=== PATIENT | female | born 1935 | race Caucasian/White ===

== ENCOUNTER 2016-12-04 15:09 | Emergency (ER) | payer MEDICARE ==
[~2016-12-04] VITALS: Ht 142.2 cm; Wt 47.7 kg
[~2016-12-04 15:09] MED LIST: CITA20TA17 PO; Calcium; DENO60DI; DOCU-175 PO; ENOX40DI SQ; MULTI-VITAMIN; OXYC-544 PO; VIT C; Vitamin B12
[2016-12-04 15:14] VITALS: Ht 142.2 cm; Wt 47.7 kg
[2016-12-04] MEDS ORDERED: MULT-933 PO (15:36)
--- OUTSIDE RECORDS SUMMARY | 2016-12-04 15:37 | XMS REPORT | Continuity of Care Document ---
Author Author [facility] Organization [facility] Address Unknown Phone Unavailable Support Name Relationship Address Phone LEONARDO ALFONSO Caregiver [address] [facility] [place], [place] [id number] AKIL MARTINEZ MD Caregiver [address] [place] [address] FRANCESCA MILLIGAN MD Caregiver [address] [facility] [address] [address] RHETT FAUSTIN Next Of Kin X [place], [place] [phone] Insurance Providers Payer Name Policy Number Subscriber Name Relationship Medicareadvantra Ppo [id number] Thania Faustin 18 Self Advance Directives Directive Response Recorded Date/Time Advanced Directives Type Living Will DPOA for Healthcare 07/02/14 2:48am Ordered Resuscitation Status Full Code 07/02/14 2:44am Resuscitation Documents on File Yes 07/02/14 3:34am Chief Complaint and Reason for Visit Chief Complaint FX. DISTAL FEMUR, LT. Reason for Visit Fracture of femur, distal, left, closed Osteoporosis Osteoporosis Scoliosis of thoracic spine Overweight (BMI 25.0-29.9) Gait instability Anemia Depression Hypokalemia Problems Medical Problems Problem Onset Date Status Fracture of femur, distal, left, closed Unknown Active Osteoporosis Unknown Active Osteoporosis Unknown Active Scoliosis of thoracic spine Unknown Active Overweight (BMI 25.0-29.9) Unknown Active Gait instability Unknown Active Anemia Unknown Active Depression Unknown Active Hypokalemia Unknown Active Medications Medication Dose Route Sig Days/Qty Instructions Order Date Discontinued Date Status [Anitdepressant] 07/26/10 07/15/11 Discontinued [Multi-Vitamin] 07/15/11 Active [Vit C] 07/15/11 Active [Vitamin B12] 07/11/12 Active [Calcium] 07/11/12 Active Citalopram Hydrobromide 1 Tab PO DAILY 07/02/14 Active Denosumab every 6 months 07/02/14 Active Docusate Sodium 100 Mg PO TWICE A DAY 30 Qty 07/07/14 Active Enoxaparin Sodium 40 Mg SQ Q24H 30 Qty 07/07/14 Active Oxycodone HCl 5-15 Mg PO Every 3 Hours PRN PAIN 60 Qty 07/07/14 Active Social History Social History Problem Response Recorded Date/Time Smoking Status Former smoker 07/02/2014 3:53am When did patient START smoking? 1953 07/02/2014 3:53am When did patient STOP smoking? 30-40 YEARS AGO 07/02/2014 3:53am Has the pt used tobacco in the last 12 months No 07/02/2014 3:53am Query Response Start Date Stop Date Smoking Status Never smoker Hospital Discharge Instructions Instructions: Care Instructions: Reason for Hospitalization: left distal femur fracture I was in the hospital because (patient own words): TRIPPED ON A CORD Discharge Diet: regular Discharge Activity: non weight bearing left lower extremity Follow Up Appointments: [address] Milligan APPT. 07-21-2014 @ 9:00 AM Wound/Incision Care: Do not remove dressing until follow up. Notify Physician If: fever greater than 101, chest pain, shortness of breath, or uncontrolled pain. Condition at time of discharge: Good Good Wound/Incision Care: n/a Durable Medical Equipment: n/a Notify Physician If: Worsening nosebleeds, blood in the stool, abdominal pain General Information: n/a Condition at time of discharge: Fair Plan of Care Discharge Date 07/07/14 5:05pm Disposition 03 TO U NOT [facility] (SNF) Instructions/Education Provided [facility] Ortho Postop DC Instruct Prescriptions See Medications Section Functional Status Query Response Date Recorded Physical Hygiene Assist July 07, 2014 4:21pm Disabilities None July 07, 2014 4:21pm Devices Used Dentures Glasses July 07, 2014 4:21pm Dressing Assist July 07, 2014 4:21pm Ambulation Assist July 07, 2014 4:21pm Diet Self July 07, 2014 4:21pm Mental Status Alert Oriented July 07, 2014 4:21pm Disabilities None July 07, 2014 4:21pm Devices Used Dentures Glasses July 07, 2014 4:21pm Physical Hygiene Assist July 07, 2014 4:21pm Dressing Assist July 07, 2014 4:21pm Ambulation Assist July 07, 2014 4:21pm Diet Self July 07, 2014 4:21pm Allergies, Adverse Reactions, Alerts Allergen Type Severity Reaction Status Last Updated No Known Allergies Active 07/02/14 Immunizations Name Given Type Hx Influenza Vaccination Y Jun Historical Hx Pneumococcal Vaccination Y [facility] 07/02/14 Historical Hx Influenza Vaccination Y Jun Historical Hx Tetanus Diptheria No open areas Historical Vital Signs Acute Vital Signs Vital Response Date/Time Temperature (Fahrenheit) 97.6 deg F (96.8 - 99.1) Temperature (Calculated Celsius) 36.99893 degrees C (36.0 - 37.3) Temperature Source Oral Pulse Rate (adult) 85 bpm (60 - 100) Respiratory Rate 16 breaths/min (10 - 20) O2 Sat by Pulse Oximetry 96 % (90 - 100) Oxygen Delivery Method Room Air Blood Pressure 152/75 mm Hg Blood Pressure Source Automatic Cuff Height 4 ft 8 in Weight 146 lb Body Mass Index 32.0 kg/m^2 Results Test Source Date Result Interp. Ref. Range Comments Activated Partial Thromboplast Time July 02, 2014 9:07am 16.6 SEC L 24-36 Alanine Aminotransferase (ALT/SGPT) July 02, 2014 2:49am 24 U/L N 9- 52 Albumin July 02, 2014 2:49am 3.3 G/DL L 3.5-5.0 Albumin/Globulin Ratio July 02, 2014 2:49am 1.4 RATIO N 1.1-2.2 Alkaline Phosphatase July 02, 2014 2:49am 90 U/L N 38-126 Anion Gap July 07, 2014 4:51am 7 MEQ/L N 5-15 Aspartate Amino Transf (AST/SGOT) July 02, 2014 2:49am 21 U/L N 14- 36 BUN/Creatinine Ratio July 07, 2014 4:51am 15 RATIO N 6-26 Basophils # (Auto) July 07, 2014 4:51am 0.0 T/MM3 N 0-0.2 Basophils (%) (Auto) July 07, 2014 4:51am 0.3 % N 0-2 Blood Urea Nitrogen July 07, 2014 4:51am 9.0 MG/DL N 7-17 Calcium Level July 07, 2014 4:51am 7.7 MG/DL L 8.4-10.2 Calculated Osmolality July 07, 2014 4:51am 259 MOSM/KG L 261-280 Carbon Dioxide Level July 07, 2014 4:51am 24 MEQ/L N 22-30 Chemistry Specimen Hemolysis July 07, 2014 4:51am < 15 0-25 0-25: No Hemolysis.26-70: Slight Hemolysis - can falsely elevate K and Urine Protein. 71-285: Moderate Hemolysis - can falsely elevate K, Troponin I, CA 19-9, PTH, CSF GLucose, and Urine Protein, and can falsely decrease Phenytoin. 286-999: Gross Hemolysis - can falsely elevate K, Troponin I, CA 19-9, PTH, CSF Glucose, and Urine Protine, and can falsely decrease Phenytoin. Recommend specimen recollection. Chloride Level July 07, 2014 4:51am 104 MEQ/L N 98-107 Creatinine July 07, 2014 4:51am 0.6 MG/DL L 0.7-1.2 Eosinophils # (Auto) July 07, 2014 4:51am 0.0 T/MM3 N 0-0.5 Eosinophils (%) (Auto) July 07, 2014 4:51am 0.5 % N 0-4 Globulin July 02, 2014 2:49am 2.3 G/DL L 2.4-3.6 Glomerular Filtration Rate Calc July 07, 2014 4:51am 96 - Glucose Level July 07, 2014 4:51am 94 MG/DL N 65-110 Hematocrit July 07, 2014 4:51am 33.6 % L 36-46 Hemoglobin July 07, 2014 4:51am 11.1 GM/DL L 12-16 Icterus Index July 07, 2014 4:51am < 2 0-7 Immature Granulocyte # (Auto) July 07, 2014 4:51am 0.02 T/MM3 N 0.00- 0.03 Immature Granulocyte % (Auto) July 07, 2014 4:51am 0.3 % N 0.0-0.5 Lymphocytes # (Auto) July 07, 2014 4:51am 1.0 T/MM3 N 1-4.8 Lymphocytes (%) (Auto) July 07, 2014 4:51am 16.2 % L 23-45 Mean Corpuscular Hemoglobin July 07, 2014 4:51am 31.3 UUG N 26-34 Mean Corpuscular Hemoglobin Concent July 07, 2014 4:51am 33.0 GM/DL N 31-37 Mean Corpuscular Volume July 07, 2014 4:51am 94.6 UM3 N 80-100 Mean Platelet Volume July 07, 2014 4:51am 9.4 UM3 N 9.4-12.4 Monocytes # (Auto) July 07, 2014 4:51am 0.8 T/MM3 N 0-0.8 Monocytes (%) (Auto) July 07, 2014 4:51am 13.4 % H 0-9.0 Neutrophils # (Auto) July 07, 2014 4:51am 4.2 T/MM3 N 1.8-7.7 Neutrophils (%) (Auto) July 07, 2014 4:51am 69.3 % H 33-66 Platelet Count July 07, 2014 4:51am 180 T/MM3 N 130-400 Potassium Level July 07, 2014 4:51am 3.5 MEQ/L L 3.6-5 Prealbumin July 02, 2014 2:49am 15.6 MG/DL L 17.6-36.0 Prothromb Time International Ratio July 02, 2014 9:07am 0.97 N 0.81- 1.09 THERAPUTIC RANGE=2.00-3.00 FOR ANTI-THROMBOSIS THERAPUTIC RANGE=2.50- 3.50 FOR IMPLANTED VALVE RDW Standard Deviation July 07, 2014 4:51am 47.7 FL N 36.9-50.2 Red Blood Count July 07, 2014 4:51am 3.55 M/MM3 L 4.00-5.20 Sodium Level July 07, 2014 4:51am 135 MEQ/L N 134-144 Thyroid Stimulating Hormone (TSH) July 02, 2014 2:49am 2.98 MIU/L N 0.47-4.68 COMMENT tom Total Bilirubin July 02, 2014 2:49am 0.40 MG/DL N 0.20-1.30 Total Protein July 02, 2014 2:49am 5.6 G/DL L 6.3-8.2 Turbidity July 07, 2014 4:51am < 20 0-20 Urinalysis Comment July 02, 2014 3:50am Microscopic not ind. - Has specimen been collected/obtained? Y Urine Bacteria July 04, 2014 3:00pm 2+ H - Has specimen been collected/obtained? Y Urine Bilirubin July 04, 2014 3:00pm Negative - Has specimen been collected/obtained? Y Urine Blood July 04, 2014 3:00pm 1+ H - Has specimen been collected/ obtained? Y Urine Collection Type July 04, 2014 3:00pm Has specimen been collected/ obtained? Y - Urine Color July 04, 2014 3:00pm Yellow - Has specimen been collected/obtained? Y Urine Culture Indicated July 04, 2014 3:00pm Cult reflexed &setup - Has specimen been collected/obtained? Y Urine Glucose (UA) July 04, 2014 3:00pm Negative - Has specimen been collected/obtained? Y Urine Ketones July 04, 2014 3:00pm 1+ H - Has specimen been collected/obtained? Y Urine Leukocyte Esterase July 04, 2014 3:00pm Trace H - Has specimen been collected/obtained? Y Urine Nitrite July 04, 2014 3:00pm Negative - Has specimen been collected/obtained? Y Urine Protein July 04, 2014 3:00pm Trace H - Has specimen been collected/obtained? Y Urine RBC July 04, 2014 3:00pm 3-5 /HPF H - Has specimen been collected/obtained? Y Urine Specific [place] July 04, 2014 3:00pm 1.020 - Has specimen been collected/obtained? Y Urine Squamous Epithelial Cells July 04, 2014 3:00pm 0-5 - Has specimen been collected/obtained? Y Urine Turbidity July 04, 2014 3:00pm Clear - Has specimen been collected/obtained? Y Urine Urobilinogen July 04, 2014 3:00pm 0.2 EU/DL - Has specimen been collected/obtained? Y Urine WBC July 04, 2014 3:00pm 20-30 /HPF H - Has specimen been collected/obtained? Y Urine pH July 04, 2014 3:00pm 6.0 - Has specimen been collected/ obtained? Y Vitamin B12 Level July 02, 2014 2:49am 684 PG/ML N 239-931 White Blood Count July 07, 2014 4:51am 6.1 T/MM3 N 4.5-11.0 Urine Culture Urine, Voided-Not Cc-Midstream July 04, 2014 3:40pm Name: THANIA FAUSTIN Unit #: [id number] : [id number] Sex: F Loc / Svc: MED DOS: 07/02/14 Signed Report #: [id number] DIAGNOSTIC IMAGING REPORT TYPE OF EXAM: RF FLUOROSCOPY CHARGE >1 HR Dictated By: KINGS CARMONA MD INDICATION: ITS.REASON: ORIF DISTAL LEFT FEMUR RF KNEE LEFT 3 VIEWS: Comparison: Femur radiographs from today Findings: Seven fluoroscopic spot images show open reduction and internal fixation of the comminuted distal femoral fracture with placement of a lateral compression plate and multiple screws. There is improved alignment of the fracture fragments. Impression: Fluoroscopy as above. . Procedures Procedure Status Date Provider(s) Open reduction and internal fixation of fracture of femur completed 07/02/14 FRANCESCA MILLIGAN MD Encounters Encounter Location Date/Time Discharged Inpatient [facility] 07/02/14 2:44am Recent Diagnosis Fracture of femur, distal, left, closed Osteoporosis Osteoporosis Scoliosis of thoracic spine Overweight (BMI 25.0-29.9) Gait instability Anemia Depression Hypokalemia
--- OUTSIDE RECORDS SUMMARY | 2016-12-04 15:37 | XMS REPORT | Continuity of Care Document ---
Author Author [facility] Organization [facility] Address Unknown Phone Unavailable Allergies Active Description Code Type Severity Reaction Onset Reported/Identified Relationship to Patient Clinical Status Yes No Known Drug Allergies No Known Drug Allergies Drug Allergy Unknown . 12/31/2012 Medications Problems Procedures Results Encounters ACCT No. Visit Date/Time Discharge Status Pt. Type Provider Facility Loc./Unit Complaint [id number] 03/19/2014 12:04:00 03/19/2014 15:33:00 DIS Emergency ISAIAS FOWLER [facility]iel [place]
--- NOTE | 2016-12-04 15:40 | ERPDOC ---
Departure Disposition Decision Date: Dec 04, 2016 Disposition Decision Time: 20:14 (COSTA SINGH MD) Disposition: 01 DISCHARGED HOME, SELF-CARE Impression Impression (AJVIER SOLANO DO) Impression: Primary Impression: Pneumonia involving left lung Additional Impression: Pneumonitis due to fumes and vapors Severity: Moderate (COSTA SINGH MD) Condition: Improved Seen By: Physician only (COSTA SINGH MD) Referrals: LEONARDO ALFONSO (Family) Patient Instructions: Pneumonia (ED) Problems/Meds/Labs Reviewed?: Yes Medications reviewed and manag: Yes (COSTA SINGH MD) Additional Instructions: Zithromax 500 mg daily for 3 days. Prednisone 10 mg tablet: 3 tabs daily for 3 days, 2 tabs daily for 3 days, 1 tab daily for 3 days. Albuterol inhaler, 1-2 puffs every 6 hours as needed. Tessalon Perle 200 mg, one tablet every 6 hours as needed for cough. Follow up care ordered?: Yes Mental Status: Alert, Oriented (COSTA SINGH MD) Scripts Azithromycin (Zithromax Tri-Darrell) 500 Mg Tablet 1 TAB PO DAILY for 3 Days, TAB Prov: COSTA SINGH MD 12/04/16 Prednisone (Prednisone) 10 Mg Tablet 0 PO TAPERQD, #18 TAB 30 mg daily x3 days 20 mg daily x3 days 10 mg daily x2 days Prov: COSTA SINGH MD 12/04/16 Albuterol Sulfate (Ventolin HFA 90 mcg/actuation) 18 Gm Hfa.aer.ad 1 PUFF ORAL INH Q4HPRN Y for SHORTNESS OF AIR/WHEEZING, #1 INHALER Prov: COSTA SINGH MD 12/04/16 Benzonatate (Benzonatate) 200 Mg Capsule 1 CAP PO Q6H Y for COUGH, #30 CAP DO NOT BITE, CHEW, OR CRUSH Prov: COSTA SINGH MD 12/04/16 HPI - Cough/URI General Chief Complaint: Cough,Fever,Flu,URI Stated Complaint: COUGH/CONGESTION Time Seen by Provider: 15:20 Source: patient (Patient presents to the ER with a 1 week complaint of cough, congestion and chest pressure. ) Exam Limitations: no limitations (JAVIER SOLANO DO) Time Seen by Provider: 18:37 (COSTA SINGH MD) HPI - Cough/URI Occurred At: home Onset/Timing: Changing over time Duration: 1 week Pain/Severity Scale: Now & Worst: Unable to Rate Prior Episodes/Possible Cause: no prior episodes Modifying Factors: IMPROVES WITH: rest, WORSE WITH: activity, coughing Associated Symptoms: chest pain/soreness, cough, nasal drainage, other, shortness of breath, DENIES: dizziness, earache, facial pain, fever/chills, headache, lightheadedness, muscle aches, nasal congestion, sinus infection, sore throat, wheezing Hx of Similar Symptoms: No (JAVIER SOLANO DO) Allergies: Coded Allergies: No Known Allergies (Unverified , 07/02/14) Past History Past Medical History Pt denies signifigant PMH Hx Echocardiogram: No Musculoskeletal: other Psychological: depression (JAVIER SOLANO DO) Surgical History Reproductive/: tubal ligation Joint: knee (JAVIER SOLANO DO) Family History Family PMH: FOUND: other (JAVIER SOLANO DO) Vaccines Hx Influenza Vaccination: Yes (Jun) Hx Pneumococcal Vaccination: Yes ([facility] 07/02/14) (JAVIER SOLANO DO) Social History Smoking Status: Unknown if ever smoked Does patient use chewing tobac: No Second Hand Exposure: No Substance Use Type: does not use Alcohol Intake: none Housing: house Service: No Current Occupational Status: retired Occupational Hazard: No Advance Directives: Yes Full Code (JAVIER SOLANO DO) Record Review Pertinent history updated: Yes (JAVIER SOLANO DO) Review of Systems Constitutional Constitutional: DENIES: chills, fever (JAVIER SOLANO DO) Eyes Lids/Accessories: DENIES: erythema, swelling (JAVIER SOLANO DO) ENMT Ears: DENIES: erythema, pain Balance: DENIES: ataxia, vertigo Sinuses: DENIES: congestion, rhinorrhea Mouth/Throat: DENIES: sore throat (DARWIN SOLANOIN DO) Cardiovascular Cardiac: chest pain, dyspnea on exertion, DENIES: orthopnea Rhythm/Rate: DENIES: tachycardia (DARWIN SOLANOIN DO) Pulmonary Respiratory: cough, dyspnea, DENIES: sputum (DARWIN SOLANOIN DO) GI Upper Abdomen: DENIES: nausea, pain, vomiting Lower Abdomen: DENIES: constipation, diarrhea, pain (XIOMARA,JAVIER DO) General: DENIES: dysuria (XIOMARA,JAVIER DO) Musculoskeletal General: DENIES: cramps, pain, weakness (XIOMARA,JAVIER DO) Integumentary Skin: DENIES: color change, itching, rash (XIOMARA,JAVIER DO) Neurological General: DENIES: ataxia, change in strength, headache, numbness, poor coordination, seizures, syncope, vertigo, weakness (XIOMARA,JAVIER DO) Psychiatric Psychiatric: DENIES: anxiety, depression, nervousness (XIOMARA,JAVIER DO) Hematologic/Lymphatic Hematologic/Lymphatic: DENIES: anemia (XIOMARA,JAVIER DO) Allergic/Immunological Allergic/Immunoligical: DENIES: sneezing (XIOMARAJAVIER DO) All other Systems All Other Systems: Reviewed and Negative (XIOMARA,JAVIER DO) Physical Exam General General Nourishment: well nourished, well developed, appears stated age, adult , thin General Body Habitus: well groomed (XIOMARADARWINJAVIER DO) Vitals and Pain First Documented Vital Signs Date Time Temp Pulse Resp B/P Pulse Ox O2 Delivery O2 Flow Rate FiO2 12/04/16 15:14 97.8 90 36 99/62 95 Room Air (COSTA SINGH MD) Vitals and Pain Weight: Kilograms: Height (feet): 4 Height (inches): 8.00 Triage Pain Scale: (DARWIN SOLANOIN DO) RN VS reviewed by Provider: Yes (XIOMARADARWINJAVIER DO) Eyes (brief) Eyes Brief: found: EOMI, PERRL (XIOMARA,JAVIER DO) ENMT (brief) ENMT Brief: FOUND: TM clear, TM good light reflex, mucosa moist, NOT FOUND: pharnyx erythema (XIOMARA,JAVIER DO) Neck (brief) Neck: FOUND: trachea midline, NOT FOUND: adenopathy, nuchal rigidity, tenderness, tracheal deviation (XIOMARA,JAVIER DO) Respiratory Inspection: FOUND: increased effort, NOT FOUND: accessory muscle use, asymmetry , audible stridor, audible wheezing Palpation: NOT FOUND: tenderness Auscultation: FOUND: decreased, rhonchi (L>R), NOT FOUND: wheezes (XIOMARA, JAVIER DO) Cardiovascular (brief) Cardiac: FOUND: regular rate, regular rhythm Capillary Refill: <2 sec Pulses: all distal extremities, equal, strong (XIOMARA,JAVIER DO) Abdomen (brief) Abdominal Brief: FOUND: bowel normo active x4, soft, NOT FOUND: distended, tender (XIOMARA,JAVIER DO) Lymphatic (brief) Lymphatic Brief: NOT FOUND: adenopathy (XIOMARA,JAVIER DO) Musculoskeletal (brief) Musculoskeletal Brief: NOT FOUND: spasm, tenderness (XIOMARA,JAVIER DO) Integumentary (brief) Integumentary Brief: FOUND: pink, warm (XIOMARA,JAVIER DO) Neurologic (brief) Neurological Brief: FOUND: CN w/o gross def to obs, motor-no gross deficits, sensory-no gross deficits (XIOMARA,JAVIER DO) Psychiatric (brief) Psychiatric Brief: FOUND: alert, attentive, normal affect, oriented (XIOMARA, JAVIER DO) Differential Diagnoses Differential Diagnoses Considering: Acute Bronchitis, Influenza, Pneumonia, Viral Syndrome, Other (XIOMARA,JAVIER DO) Progress Results/Orders Orders Procedure Category Date Status Time Cbc W/Auto LAB 12/04/16 Complete Diff-Reflex Manual 15:32 Cmp - Comprehensive LAB 12/04/16 Complete Metabolic 15:32 Probnp LAB 12/04/16 Complete 15:32 Troponin I W LAB 12/04/16 Complete Hemolysis Index 15:32 EKG EKG 12/04/16 Taken 15:32 Chest 1 View RAD 12/04/16 Resulted 15:32 Iv Lock (Ed Only) EDM 12/04/16 Transmitted 15:32 Aspirin (Asa) PHA 12/04/16 Complete 15:45 Influenza A/B Screen LAB 12/04/16 Complete 15:32 Blood Culture TASHA 12/04/16 In Process 15:32 Lactate - Lactic Acid LAB 12/04/16 Complete Procalcitonin LAB 12/04/16 Complete 15:32 Ceftriaxone I.V. (Er PHA 12/04/16 Complete Use Only) (Rocephin 17:15 Methylprednisolone PHA 12/04/16 Complete Sod Succ (Solu-Medrol 17:15 Albuterol/Ipratropium PHA 12/04/16 Complete (Duoneb) 18:00 Troponin I W LAB 12/04/16 Complete Hemolysis Index EKG EKG 12/04/[address] Chest W/O Contrast CT 12/04/16 Taken 18:45 Benzonatate (Tessalon PHA 12/04/16 Complete Perles 200 Mg) 20:00 (COSTA SINGH MD) Lab Results Laboratory Tests Test 12/04/16 15:52 12/04/16 15:56 12/04/16 18:09 Influenza Type A Antigen Negative Influenza Type B Antigen Negative White Blood Count 7.0T/MM3 Red Blood Count 4.27M/MM3 Hemoglobin 13.3GM/DL Hematocrit 39.8% Mean Corpuscular Volume 93.2UM3 Mean Corpuscular Hemoglobin 31.1UUG Mean Corpuscular Hemoglobin Concent 33.4GM/DL RDW Standard Deviation 43.0FL Platelet Count 188T/MM3 Mean Platelet Volume 10.1UM3 Immature Granulocyte % (Auto) 0.4% Neutrophils (%) (Auto) 72.2% Lymphocytes (%) (Auto) 16.7% Monocytes (%) (Auto) 10.5% Eosinophils (%) (Auto) 0.1% Basophils (%) (Auto) 0.1% Absolute Immature Granulocyte (auto 0.03T/MM3 Absolute Neutrophils (auto) 5.0T/MM3 Absolute Lymphocytes (auto) 1.2T/MM3 Absolute Monocytes (auto) 0.7T/MM3 Absolute Eosinophils (auto) 0.0T/MM3 Absolute Basophils (auto) 0.0T/MM3 Turbidity < 20 Sodium Level 141MEQ/L Potassium Level 3.2MEQ/L Chloride Level 104MEQ/L Carbon Dioxide Level 26MEQ/L Anion Gap 11MEQ/L Blood Urea Nitrogen 12.0MG/DL Creatinine 0.6MG/DL Glomerular Filtration Rate Calc 96 BUN/Creatinine Ratio 20RATIO Glucose Level 104MG/DL Calculated Osmolality 271MOSM/KG Calcium Level 9.6MG/DL Total Bilirubin 1.00MG/DL Icterus Index < 2 Aspartate Amino Transf (AST/SGOT) 29U/L Alanine Aminotransferase (ALT/SGPT) 33U/L Alkaline Phosphatase 84U/L Troponin I < 0.012ng/ml < 0.012ng/ml DE-Cwb-E-Type Natriuretic Peptide 256PG/ML Total Protein 5.8G/DL Albumin 3.0G/DL Globulin 2.8G/DL Albumin/Globulin Ratio 1.1RATIO Plasma Lactate 1.7MMOL/L Procalcitonin 0.11NG/ML Chemistry Specimen Hemolysis < 15 < 15 (COSTA SINGH MD) Medications Current ED Medications Aspirin 324 mg 324 mg O ONCE PO Last administered on 12/04/16 15:53; Start at 15:45; Stop 12/04/16 at 15:46; Status DC Ceftriaxone Sodium/Sodium Chloride (Rocephin/NS) 100 ml @ 100 mls/hr O ONCE IV Last administered on 12/04/16 17:30; Start 12/04/16 at 17:15; Stop at 18:14; Status DC Methylprednisolone Sodium Succinate (Solu-Medrol) 60 mg O ONCE IV Last administered on 12/04/16 17:24; Start 12/04/16 at 17:15; Stop 12/04/16 at 17:17 ; Status DC Albuterol/ Ipratropium (Duoneb) 3 ml O ONCE AEROSOL Last administered on 18:13; Start 12/04/16 at 18:00; Stop 12/04/16 at 18:01; Status DC Benzonatate (TESSALON PERLES 200 mg) 200 mg O ONCE PO Last administered on 20:10; Start 12/04/16 at 20:00; Stop 12/04/16 at 20:01; Status DC (COSTA SINGH MD) Progress Progress Patient resting comfortably, wanting to go home I discussed admission, Patient refused I recommended CTA of the chest, but the patient refused Case discussed with Dr. Singh at 18:00 hours, repeat Troponin I and EKG pending. Dr. Singh has assumed care and will make final disposition. (JAVIER SOLANO DO) Progress Patient did ultimately agree to CT of chest as she was still coughing and labs returned without significant answer. CT showed early pneumonia left lower lobe. This is certainly consistent with her symptoms at this time. She's had Rocephin 1 g and Solu-Medrol. She was given a Tessalon Perle and a prescription for them , as well as prescription for Zithromax 500 mg daily for 3 days, prednisone taper and albuterol MDI. I do think that the smoke from her stove likely began and irritation of the lung which allowed the pneumonia to form. (COSTA SINGH MD) EKG EKG : Rate: 60-100 Rhythm: sinus [place]: normal QRS: normal Intervals: normal ST/T: normal Interpreted by: signing physician (JAVIER SOLANO DO) EKG ScImage/Picomm EKG interpreted in ScImage/Pic: No (JAVIER SOLANO DO) Xray Xray : Reason for Exam: Cough Xray: CXR Portable Interpretation: Normal, Reviewed Written Report (JAVIER SOLANO DO) JAVIER SOLANO DO Dec 04, 2016 15:40 COSTA SINGH MD Dec 04, 2016 20:01
[2016-12-04] MEDS ORDERED: ASPIRIN 81 MG CHEWABLE TABLET PO ONE (15:45)
[2016-12-04 16:06] LABS: BASOPHILS % (AUTO) 0.1 % (0-2); EOSINOPHILS % (AUTO) 0.1 % (0-4); HCT - HEMATOCRIT 39.8 % (36-46); HGB - HEMOGLOBIN 13.3 GM/DL (12-16); IMMATURE GRANULOCYTE # (AUTO) 0.03 T/MM3 (0.00-0.03); IMMATURE GRANULOCYTE % (AUTO) 0.4 % (0.0-0.5); LYMPHOCYTES # (AUTO) 1.2 T/MM3 (1-4.8); LYMPHOCYTES % (AUTO) 16.7 % (23-45); MEAN CORPUSCULAR HGB 31.1 UUG (26-34); MEAN CORPUSCULAR HGB CONC(MCHC 33.4 GM/DL (31-37); MEAN CORPUSCULAR VOLUME 93.2 UM3 (80-100); MEAN PLATELET VOLUME 10.1 UM3 (9.4-12.4); MONOCYTES # (AUTO) 0.7 T/MM3 (0-0.8); MONOCYTES % (AUTO) 10.5 % (0-9.0); NEUTROPHILS % (AUTO) 72.2 % (33-66); RED BLOOD COUNT 4.27 M/MM3 (4.00-5.20)
[2016-12-04 16:13] LABS: ALBUMIN/GLOBULIN RATIO 1.1 RATIO (1.1-2.2); ALKALINE PHOSPHATASE 84 U/L (38-126); ALT (SGPT) 33 U/L (9-52); ANION GAP 11 MEQ/L (5-15); AST (SGOT) 29 U/L (14-36); BUN/CREATININE RATIO 20 RATIO (6-26); CALCIUM 9.6 MG/DL (8.4-10.2); CHLORIDE 104 MEQ/L (98-107); CO2 - CARBON DIOXIDE 26 MEQ/L (22-30); CREATININE 0.6 MG/DL (0.7-1.2); GLOMERULAR FILTRATION RATE 96; GLUCOSE 104 MG/DL (65-110); POTASSIUM 3.2 MEQ/L (3.6-5); SODIUM 141 MEQ/L (134-144); TOTAL PROTEIN 5.8 G/DL (6.3-8.2)
[2016-12-04 16:21] LABS: INFLUENZA A AG SCREEN NEGATIVE (NEGATIVE)
[2016-12-04 16:22] LABS: INFLUENZA B AG SCREEN NEGATIVE (NEGATIVE)
[2016-12-04 16:25] LABS: PROBNP 256 PG/ML (0-175)
--- NOTE | 2016-12-04 16:26 | DI ---
Indication: ITS.REASON: dyspnea / chest pain PROCEDURE: CHEST 1 VIEW: Encounter: Initial Comparison: July 02, 2014 Findings: Chronic changes in the lungs with evidence of emphysema on the right. There is some chronic scarring in the left base. Intrathoracic stomach is also present causing increased opacity and obscuration of the left hemidiaphragm similar to the comparison. Upper lung edwards are clear. No pneumothorax. Calcified granulomas in the peripheral left upper lobe. Cardiac silhouette is mild to moderately enlarged but unchanged. Pulmonary vascularity appears normal. Degenerative changes in both shoulders with chronic rotator cuff tears. Severe scoliosis and degenerative change in the spine. Impression: No focal pneumonia or congestive failure. .
[2016-12-04] MEDS ORDERED: CEFTRIAXONE I.V. (ER USE ONLY) 1 G in NORMAL SALINE 100 ML IV ONE (17:15)
--- NOTE | 2016-12-04 17:33 | NUR ---
DR SOLANO IN
[2016-12-04] MEDS ORDERED: ALBUTEROL/IPRATROPIUM INHAL. 2.5mg-0.5mg/3ml Neb. AEROSOL ONE (18:00)
--- NOTE | 2016-12-04 18:05 | NUR ---
REPORT TO BOOKER RAMEY
--- NOTE | 2016-12-04 19:18 | NUR ---
RETURN FROM CT
[2016-12-04] MEDS ORDERED: BENZONATATE 200 MG CAPSULE PO ONE (20:00)
[2016-12-04] MEDS ORDERED: AZIT500T2 PO (20:17)
[2016-12-04] MEDS ORDERED: PRED10TA PO (20:17)
[2016-12-04] MEDS ORDERED: BENZ200C36 PO (20:17)
[2016-12-04] MEDS ORDERED: ALBU18HF2 ORAL INH (20:17)
[2016-12-04 20:45] VITALS: BP 127/66; PULSE 88; RESP 37; TEMP 98.3; O2SAT 93
--- NOTE | 2016-12-04 20:45 | NUR ---
DEPART PT IS GIVEN DISMISSAL INSTRUCTIONS WITH VERBAL UNDERSTANDING. PT IS GIVEN SCRIPTS. PT LEAVES AMBUALTORY WITH FAMILY TO ED REGISTRATION DESK
--- NOTE | 2016-12-05 08:04 | DI ---
Indication: ITS.REASON: DYSPNEA, PROCEDURE: CT CHEST W/O CONTRAST: Encounter: Initial Comparison: Chest x-ray from the same date Technique: Axial CT images were performed through the chest without intravenous contrast. Coronal and sagittal two-dimensional reformats. Automated Exposure Control and Iterative Reconstruction dose reducing techniques were utilized. Findings: There is some patchy airspace consolidation in both lower lobes along with the right middle lobe. Scattered calcified granulomas. No pneumothorax or pleural effusion. The central airways are patent. No axillary or mediastinal adenopathy. 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 Tortuous ectatic thoracic aorta is noted. Heart size is normal. No pericardial effusion. Coronary artery disease. The visualized upper abdomen shows no acute findings. Small gallstone noted incidentally. Severe scoliosis with multiple chronic appearing compression deformities in the thoracic and lumbar spine. Impression: Patchy lower lobe infiltrates could be due to pneumonia or aspiration. There is a preliminary report by [facility]. .
== END 2016-12-04 20:45 | disposition home or self-care (01) ==
LOC: ED 15:09
DX: T59.811A Toxic effect of smoke, accidental (unintentional), initial encounter (principal); J68.0 Bronchitis and pneumonitis due to chemicals, gases, fumes and vapors; Y92.000 Kitchen of unspecified non-institutional (private) residence as the place of occurrence of the external cause
CPT/HCPCS: 36415; 71010; 71250; 80053; 83605; 83880; 84145; 84484; 85025; 87040; 87400; 93005; 94640; 96365; 96375; 99284; A9270; J0696; J2930; J7050